=== PATIENT | male | born 1980 | race Caucasian/White ===

== ENCOUNTER 2019-03-17 19:52 | Emergency (ER) | payer OTHER ==
[~2019-03-17] VITALS: Ht 182.9 cm; Wt 113.4 kg
== END 2019-03-17 23:10 | disposition home or self-care (01) ==
LOC: ER 19:52
DX: S90.32XA Contusion of left foot, initial encounter (principal); W22.8XXA Striking against or struck by other objects, initial encounter; Y93.89 Activity, other specified; Y92.89 Other specified places as the place of occurrence of the external cause; Y99.8 Other external cause status